=== PATIENT | female | born 1955 | race Caucasian/White ===

== ENCOUNTER 2017-06-06 10:42 | Emergency (ER) | payer OTHER ==
[2017-06-06] MEDS ORDERED: Morphine INJ* 4 MG/ML 1 ML CARPUJECT IV ONE ×3 (11:33→12:16)
[2017-06-06] MEDS ORDERED: Ondansetron INJ* 2 MG/ML VIAL IV ONE (11:44)
[2017-06-06] MEDS ORDERED: Morphine INJ* 4 MG/ML 1 ML SYRINGE (NEW SYRINGE VERSION) IV ONE (12:00)
--- NOTE | 2017-06-06 13:51 | RAD ---
HISTORY: Fall, left arm pain COMPARISONS: None VIEWS: 6, Frontal internal rotation, external rotation, outlet, and axillary views of the left shoulder frontal internal and external rotation views of the left humerus. FINDINGS: BONE DENSITY: There is diffuse osteopenia. BONES: There is a slightly angulated fracture of the surgical neck of the left humerus. There is minimal impaction. JOINTS: There is mild osteoarthritis of the AC joint. ALIGNMENT: There is no dislocation. SOFT TISSUES: Unremarkable. OTHER FINDINGS: None. IMPRESSION: 1. OSTEOPENIA. 2. MILDLY ANGULATED FRACTURE OF THE PROXIMAL LEFT HUMERUS
[2017-06-06] MEDS ORDERED: traMADol TAB* 50 MG PO ONE (14:34)
[2017-06-06 15:15] VITALS: BP 112/68
--- NOTE | 2017-06-08 11:09 | ED ---
Mich Trejo Stephanie, scribed for Be Vergara MD on 06/06/17 at 1151 . Upper Extremity Pain - HPI Summary HPI Summary: The pt is a 61 y/o F presenting to the ED with c/o L shoulder pain that began at 10:30 today s/p slip on ice. The pt reports hearing a pop after falling on L side. The pt denies numbness and tingling in the L UE, head trauma or LOC. Aggravating factors include movement. - History of Current Complaint Chief Complaint: Melissa Stated Complaint: POSSIBLE BROKEN LT SHOULDER Time Seen by Provider: 06/06/17 11:34 Hx Obtained From: Patient Mechanism Of Injury: Fall From A Standing Position Onset/Duration: Started Hours Ago - 2, Still Present Timing: Constant Severity Currently: Severe Pain Location: Shoulder - L Aggravating Factor(s): Movement Alleviating Factor(s): Nothing Associated Signs & Symptoms: Positive: Other - Negative: head trauma, LOC. Negative: Numbness/Tingling - L UE - Allergies/Home Medications Allergies/Adverse Reactions: Allergies Allergy/AdvReac Type Severity Reaction Status Date / Time MS Epinephrine [Epinephrine] Allergy HYPERVENTIL Verified 07/09/15 10:17 ATION MS Tetanus Antitoxin Allergy BRAIN Verified 07/09/15 10:17 [Tetanus Antitoxin] SEIZURES PMH/Surg Hx/FS Hx/Imm Hx Endocrine/Hematology History: Denies: Hx Diabetes Cardiovascular History: Denies: Hx Hypertension, Hx Pacemaker/ICD Respiratory History: Reports: Other Respiratory Problems/Disorders - BRONCHIAL PNEUMONIA X 2 History: Denies: Hx Renal Disease Musculoskeletal History: Reports: Hx Osteoporosis Sensory History: Reports: Hx Contacts or Glasses, Hx Vision Problem - r/t traumatic brain injury Denies: Hx Hearing Aid Opthamlomology History: Reports: Hx Contacts or Glasses, Hx Vision Problem - r/ t traumatic brain injury Neurological History: Reports: Hx Migraine, Hx Seizures, Other Neuro Impairments /Disorders - traumatic brain injury Psychiatric History: Denies: Hx Panic Disorder - Cancer History Cancer Type, Location and Year: Rt BREAST CANCER W/ MASTECTOMY - NO LYMPH NODES INVOLVED Hx Chemotherapy: Yes - APR-AUGUST 2014 CHEMO FOR RIGHT LYMPH CANCER Hx Radiation Therapy: No - Surgical History Surgery Procedure, Year, and Place: possibly 2009 or 2008 - right mastectomy. traumatic brain injury with surgery - HEMATOMA -BLEEDING - BUR HOLE DRAINAGE W/ TITANIUM CLOSURE - [facility] PL[facility] -11 years ago( INFORMAITON SCANNED INTO PACS). Rt HIP - FX REPAIR - 12/18/13. ECTOPIC - MANY YRS AGO Hx Anesthesia Reactions: Yes - with dental anesthesia Infectious Disease History: No Infectious Disease History: Denies: Traveled Outside the [place] in Last 30 Days - Family History Known Family History: Positive: Other - cancer, aneurism Negative: Diabetes - Social History Occupation: Works From/At Home Lives: With Family Alcohol Use: Weekly Alcohol Amount: half a bottle a week Substance Use Type: Reports: None Smoking Status (MU): Never Smoked Tobacco Review of Systems Negative: Fever, Chills Negative: Erythema Negative: Sore Throat Negative: Chest Pain Negative: Shortness Of Breath, Cough Negative: Abdominal Pain, Vomiting, Nausea Negative: dysuria, hematuria Positive: Other - L shoulder pain. Negative: Myalgia, Edema Negative: Rash Negative: Numbness Psychological: Other - Negative: dizziness All Other Systems Reviewed And Are Negative: Yes Physical Exam - Summary Physical Exam Summary: Constitutional: Well-developed, Well-nourished, Alert. (-) Distressed Skin: Warm, Dry HENT: Normocephalic; Atraumatic Eyes: Conjunctiva normal Neck: Musculoskeletal ROM normal neck. (-) JVD, (-) Stridor, (-) Tracheal deviation Cardio: Rhythm regular, rate normal, Heart sounds normal; Intact distal pulses; The pedal pulses are 2+ and symmetric. Radial pulses are 2+ and symmetric. (-) Murmur Pulmonary/Chest wall: Effort normal. (-) Respiratory distress, (-) Wheezes, (-) Rales Abd: Soft, (-) Tenderness, (-) Distension, (-) Guarding, (-) Rebound Musculoskeletal: Significant edema over L deltoid. No loss of deltoid prominence. Distal strength and sensation intact. Lymph: (-) Cervical adenopathy Neuro: Alert, Oriented x3 Psych: Mood and affect Normal Triage Information Reviewed: Yes Vital Signs On Initial Exam: Initial Vitals Temp Pulse Resp BP Pulse Ox 97.0 F 69 18 105/58 100 06/06/17 10:46 06/06/17 10:46 06/06/17 10:46 06/06/17 10:46 06/06/17 10:46 Vital Signs Reviewed: Yes Diagnostics - Vital Signs Vital Signs Temp Pulse Resp BP Pulse Ox 06/06/17 10:46 97.0 F 69 18 105/58 100 - Laboratory Lab Statement: Any lab studies that have been ordered have been reviewed, and results considered in the medical decision making process. - Radiology Shoulder XRay Xray Interpretation: Positive (See Comments) Radiology Interpretation Completed By: Radiologist - 1. OSTEOPENIA. 2. MILDLY ANGULATED FRACTURE OF THE PROXIMAL LEFT HUMERUS Humerus XRay Xray Interpretation: Positive (See Comments) - 1. OSTEOPENIA. 2. MILDLY ANGULATED FRACTURE OF THE PROXIMAL LEFT HUMERUS Radiology Interpretation Completed By: Radiologist Course/Dx - Course Course Of Treatment: The pt has a nondisplaced fracture. Urgent ortho referral for tomorrow. Splint in place. - Diagnoses Provider Diagnoses: possible humerus fracture Discharge - Discharge Plan Condition: Stable Disposition: HOME Prescriptions: traMADol TAB* [Ultram*] 50 mg PO Q6HR PRN #15 tab MDD 4 PRN Reason: Pain - Moderate To Severe Patient Education Materials: Proximal Humerus Fracture (ED) Referrals: Mic Sethi MD [Medical Doctor] - 06/07/17 Fly Phillips MD [Primary Care Provider] - Additional Instructions: Follow up with orthopedic physician tomorrow. RETURN TO THE EMERGENCY DEPARTMENT FOR CHANGING OR WORSENING SYMPTOMS The documentation as recorded by the Mich vázquez Stephanie accurately reflects the service I personally performed and the decisions made by , Be Vergara MD.
== END 2017-06-06 15:14 | disposition home or self-care (01) ==
LOC: ED 10:42
DX: S42.202A Unspecified fracture of upper end of left humerus, initial encounter for closed fracture (principal); W19.XXXA Unspecified fall, initial encounter; Y92.9 Unspecified place or not applicable; M85.822 Other specified disorders of bone density and structure, left upper arm; Z88.4 Allergy status to anesthetic agent; Z88.7 Allergy status to serum and vaccine
CPT/HCPCS: 96374; 96375; 96376; 99283; J2270; J2405

== ENCOUNTER 2017-06-16 14:00 | Inpatient (IN) | payer OTHER ==
[2017-10-06] MEDS ORDERED: LORazepam INJ* 2 MG/ML 1 ML VIAL IV PRN (17:13)
[2017-10-06] MEDS ORDERED: diPHENhydraMINE PO* 25 MG PO PRN (17:13)
[2017-10-06] MEDS ORDERED: Acetaminophen TAB* 325 MG PO PRN (17:13)
--- NOTE | 2017-10-06 17:40 | ADMNOTE ---
Admission Note HPI - HPI History of Present Illness: Deanne Pacheco is a 62 year old woman with a history of breast cancer and epilepsy since the age of 11. She reports that at the onset of her epilepsy, she had a seizure witnessed by her mother where she was staggering, walking around in a viejas and not responding. She was seizure-free during her teenage years on medication, but her seizures returned after a boyfriend committed suicide. She noticed increase seizure frequency during pregnancies, of which she 's had 6 with 2 healthy children. She gets an aura before a seizure that is a very "foreign" feeling descending over her and she has previously described this to me as a "big, bad meanie taking over my head". She can sometimes have repeated auras in a single day. Her has reported that when Deanne has a seizure, she is unresponsive, has bimanual automatisms, oral automatisms and humming. It takes her 2 to 4 minutes to get back to normal but she may still have a "fog" that takes longer to lift. Afterward, she feels confused. Thirteen years ago, she fell down the stairs for unclear reasons and had an intracranial hematoma which was evacuated on the right. Seizures went away for 1.5 years. When they returned, the semiology was the same. She had breast cancer in 2014 and seizures got worse during chemotherapy, up to twice per month. At that time, carbamazepine 200mg was increased to 6.5 tabs daily, which she divides over 4 administrations daily. She believes she had EEG monitoring at [facility] in the past, but could not specifically recall the results, though believes it was her choice not to go through with surgery. She continues to have multiple events per month. She had a seizure this morning , and on 10/03, she had two. I saw her on August 22 and at that time she reported having 5 seizures in addition to 5 auras in Apr, 1 sz in May, 4 sz in June plus 6 auras, 3 sz in July plus 1 aura. She had agreed previously that she would like to re-explore a surgical option, given her medically refractory seizures. PRIOR AEDs: Lamictal: not effective levetiracetam: sleepiness phenobarbital: on through teenage years phenytoin: on through teen years Epilepsy Risk Factors: Normal and developmental history. Mother had a "nervous breakdown" during and took some medications but pt unsure what. No h/o head injury prior to onset of seizures at age 11. No learning disabilities, no h/o febrile seizures. PNEA Risk Factors: h/o seizures reappearing after traumatic event (boyfriend committed suicide) PMH/Surg Hx/FS Hx/Imm Hx Endocrine/Hematology History: Denies: Hx Diabetes Cardiovascular History: Denies: Hx Hypertension, Hx Pacemaker/ICD Respiratory History: Reports: Other Respiratory Problems/Disorders - BRONCHIAL PNEUMONIA X 2 History: Denies: Hx Renal Disease Musculoskeletal History: Reports: Hx Osteoporosis Sensory History: Reports: Hx Contacts or Glasses, Hx Vision Problem - r/t traumatic brain injury Denies: Hx Hearing Aid, Hx Hearing Problem Opthamlomology History: Reports: Hx Contacts or Glasses, Hx Vision Problem - r/ t traumatic brain injury Neurological History: Reports: Hx Migraine, Hx Seizures, Other Neuro Impairments /Disorders - traumatic brain injury Denies: Hx Developmental Delay, Hx Transient Ischemic Attacks (TIA) Psychiatric History: Reports: Hx Depression Denies: Hx Panic Disorder - Cancer History Cancer Type, Location and Year: Rt BREAST CANCER W/ MASTECTOMY - NO LYMPH NODES INVOLVED Date and Location of Last Treatment: chemotherapy august 2014 Hx Chemotherapy: Yes - APR-AUGUST 2014 CHEMO FOR RIGHT breast CANCER Hx Radiation Therapy: No Hx Palliative Cancer Treatment: No - Surgical History Surgery Procedure, Year, and Place: possibly 2009 or 2008 - right mastectomy, left lumpectoomy, lymph node removal. traumatic brain injury with surgery - HEMATOMA -BLEEDING - BUR HOLE DRAINAGE W/ TITANIUM CLOSURE - [facility] PL[facility] -11 years ago( INFORMAITON SCANNED INTO PACS). Rt HIP - FX REPAIR - 12/18/13. ECTOPIC - MANY YRS AGO Hx Anesthesia Reactions: Yes - with dental anesthesia Infectious Disease History: No Infectious Disease History: Denies: Traveled Outside the [place] in Last 30 Days - Family History Known Family History: Positive: Other - cancer, aneurysm Negative: Diabetes - Social History Alcohol Use: Occasionally Alcohol Amount: wine occasionally Substance Use Type: Reports: None Smoking Status (MU): Never Smoked Tobacco EMU Exam - Exam Physical/Neurological Exam: Physical Exam: General: Well appearing in no acute distress. Eyes: normal conjunctiva, pupils were equal and reactive. Neck: supple ENT: atraumatic, normal oropharynx MSK: no extremity deformities Derm: no rashes or lesions Neurological Exam: Mental Status: Awake and alert. Oriented to person, place, and time. Fluent. Comprehension intact. Affect appropriate. Cranial Nerves: Visual song full to confrontation. Versions were full and without nystagmus. Facial musculature and sensation were symmetric. Hearing grossly intact to finger rub. Palate was upgoing bilaterally. Tongue was midline. Shoulder shrug was symmetric. Motor: Bulk, tone, and strength were normal throughout. Pronator drift was absent. There were no abnormal movements. Sensory: Sensation to light touch intact. Romberg was deferred. Coordination: Finger to nose intact. Reflexes: 2+ throughout the upper and lower extremities. Gait: Narrow based and normal. EMU Review of Systems Review of Systems: A 12 point review of systems was completed and significantly positive for: nothing. The remainder of the review was negative except as stated above in the HPI. EMU Diagnostics - Diagnostic Most Recent Vital Signs: Vital Signs: Temp Pulse Resp BP Pulse Ox 97.9 F 70 16 121/73 100 10/06/17 14:20 10/06/17 14:20 10/06/17 14:20 10/06/17 14:20 10/06/17 14:20 Lab Results: 02/13/17: free carbamazepine: 2.5, total 7.3, 10,11-epoxide 1.9 Interim video-EEG long-term monitoring report: 24 hour EEG 02/16/17: abnormal due to presence of polymorphic slowing in R parietal region, which occurred in the context of higher amplitudes and faster frequency activity, the latter of which is consistent with breach effect related to her craniotomy. Slowing indicative of underlying neuronal dysfunction in this region. No discharges. One event of vision changes with poor balance and "brain strain" noted which was not epileptic Radiology Impressions: MRI brain w and w/o 07/18/15: focal volume loss inferious left frontal lobe and inferior anterior left temporal lobe with increased signal intensity c/w areas of encephalomalacia related to prior TBI. 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 EMU Assessment/Plan - Assessment/Plan Assessment/Plan: 62 year old woman with h/o breast cancer and long-standing, medically refractory focal epilepsy presenting for surgical evaluation. Her events are consistent with focal seizures with impaired awareness. Her MRI scan is notable for areas of abnormality in the left frontal and temporal lobes, as well as previous hemorrhage in the right parietal region. She is currently treated with carbamazepine 400mg/300mg/200mg/400mg daily and has failed other antiseizure medications, as detailed above. She may have had a previous surgical work up in [place], but does not recall the outcome and/or elected not to proceed with surgery. The goal of the present jail video/EEG monitoring session is to localize her seizures and evaluate her for surgical candidacy. Plan: Admit to the Epilepsy Service, Dr. Cagle attending residential video EEG monitoring for the purpose of characterizing and localizing events above Seizure precautions IV lorazepam as needed for GTC Home AED regimen: carbamazepine 400mg/300mg/200mg/400mg (TDD 1300mg). Continue on other prescribed home medications except for supplements which were not brought in bottles, unless her can get the bottles for us * Decrease carbamazepine 200/150/100/200mg tonight
[2017-10-06] MEDS ORDERED: Magnesium Oxide TAB* 400 MG PO SCH (18:00)
[2017-10-06] MEDS ORDERED: carBAMazepine TAB(*) 200 MG PO SCH ×2 (18:00→21:00)
[2017-10-06] MEDS: Cholecalciferol TAB* 1000 UNITS PO SCH (22:00)
[2017-10-07] MEDS ORDERED: carBAMazepine TAB(*) 200 MG PO SCH ×2 (09:00→12:00)
[2017-10-07] MEDS: Ascorbic Acid TAB* 500 MG PO SCH (09:10)
[2017-10-07] MEDS: Calcium Carbonate TAB* 1250 MG (CALCIUM 500 MG) PO SCH (09:11)
[2017-10-07] MEDS: Vitamin THERAPEUTIC TAB PO SCH (09:11)
[2017-10-07] MEDS: Cholecalciferol TAB* 1000 UNITS PO SCH ×2 (09:12→21:13)
[2017-10-07] MEDS: Vitamin E CAP* 400 UNIT PO SCH (09:12)
--- NOTE | 2017-10-07 10:17 | PN ---
Epilepsy Service Progress Note Date of Service: 10/07/17 - Subjective No overnight events. Patient asks if she can do her usual exercise routine at night which involved mostly stretching while lying down on the ground, but she also does 400 jumping jacks. She is feeling a little achy in her shoulders from not moving around much yesterday. She did not take her usual afternoon nap yesterday because of arriving here at 1pm. - Medications Active Medications: Acetaminophen (Tylenol Tab*) 650 mg PO Q6H PRN PRN Reason: PAIN Ascorbic Acid (Vitamin C Tab*) 500 mg PO DAILY [facility] Last Admin: 10/07/17 09:10 Dose: 500 mg Calcium Carbonate (Calcium Carbonate Tab*) 1,250 mg PO DAILY [facility] Last Admin: 10/07/17 09:11 Dose: 1,250 mg Carbamazepine (Tegretol Tab(*)) 100 mg PO QPM [facility] Last Admin: 10/06/17 18:45 Dose: 100 mg Carbamazepine (Tegretol Tab(*)) 200 mg PO BEDTIME [facility] Last Admin: 10/06/17 22:01 Dose: 200 mg Carbamazepine (Tegretol Tab(*)) 150 mg PO 1200 [facility] Carbamazepine (Tegretol Tab(*)) 200 mg PO QAM [facility] Last Admin: 10/07/17 09:10 Dose: 200 mg Cholecalciferol (Vitamin D Tab*) 4,000 units PO BID [facility] Last Admin: 10/07/17 09:12 Dose: 4,000 units Diphenhydramine HCl (Benadryl Po*) 25 mg PO Q6H PRN PRN Reason: ITCHING Lorazepam (Ativan Inj*) 1 mg IV Q8H PRN PRN Reason: Generalized Tonic Clonic Seizu Magnesium Oxide (Magox 400 Tab*) 500 mg PO QPM [facility] Multivitamins (Theragran Tab*) 1 tab PO DAILY [facility] Last Admin: 10/07/17 09:11 Dose: 1 tab Vitamin E (Vitamin E Cap*) 400 unit PO DAILY [facility] Last Admin: 10/07/17 09:12 Dose: 400 unit EMU Diagnostics - Diagnostic Most Recent Vital Signs: Vital Signs: Temp Pulse Resp BP Pulse Ox 98.0 F 59 17 137/70 100 10/07/17 07:39 10/07/17 07:39 10/07/17 07:39 10/07/17 07:39 10/07/17 07:39 Interim video-EEG long-term monitoring report: #01 10/06: Medications: carbamazepine 100mg dinner time on 10/06, 200mg at bedtime 10/06, 200mg AM 10/07 The background demonstrated an area of slowing, higher amplitudes and some faster frequency activity in the right parietal region, maximal at P4, which is consistent with breach effect related to her previous craniotomy. There is also intermittent sharply contoured delta slowing in the left temporal region, maximal at T1 and F7 with a field to T3. At times, these appear to be poorly formed sharp wave discharges. The background was otherwise notable for a PDR of 9 on the left, approximately 8.5 on the right. The sleep background was notable for rapid transition to REM sleep after the patient initially fell asleep. Approximately 20 minutes after stage 2 sleep was first noted she went into REM, but she had frequent arousals initially during those first 20 minutes of sleep. No seizures, no ictal patterns EMU Exam - Exam Physical/Neurological Exam: Physical Exam: General: Well appearing in no acute distress. Eyes: normal conjunctiva, pupils were equal and reactive. Neck: supple ENT: atraumatic, normal oropharynx MSK: no extremity deformities Derm: no rashes or lesions Neurological Exam: Mental Status: Awake and alert. Oriented to person, place, and time. Fluent. Comprehension intact. Affect appropriate. Cranial Nerves: Visual song full to confrontation. Pupils 3/3 to 2/2mm bilaterally. Versions were full and without nystagmus. Facial musculature and sensation were symmetric. Hearing grossly intact to voice. Palate was upgoing bilaterally. Tongue was midline. Shoulder shrug was symmetric. Motor: Bulk, tone, and strength were normal throughout. Pronator drift was absent. There were no abnormal movements. Sensory: Sensation to light touch intact. Romberg was deferred. Coordination: Finger to nose intact. Reflexes: 2+ throughout the upper and lower extremities. 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 The current monitoring session is undertaken in order to evaluate for surgical candidacy. EEG has been notable for intermittent slowing in the left temporal region and right parietal region. No typical events recorded yet. Plan: * Continue nursing home video EEG monitoring to capture typical episodes * Seizure precautions * lorazepam 1mg IV for GTC * home AED regiment: carbamazepine 400mg/300mg/200mg/400mg. * Wean carbamazepine as follows: d/c 1800 dose (received 100mg last night), reduce bedtime dose to 100mg. Will receive 150mg at noon today, then 100mg tomorrow AM, then will d/c carbamazepine. * continue other home meds, except supplements which were not in bottles/ original containers * Ok for patient to exercise as she does at home with staff present in the room. Also offered use of exercise bike.
--- NOTE | 2017-10-07 10:28 | EEG ---
RESIDENTIAL VIDEO/EEG MONITORING - Monitoring Monitoring Start Date: 10/06/17 Current Monitoring Session: 10/06/17 - 10/10/17 EEG Clinical Indication: This is a 62 year old woman with h/o breast cancer and long-standing, medically refractory focal epilepsy presenting for surgical evaluation. Her events are consistent with focal seizures with impaired awareness and are described as staring/unresponsiveness associated with bimanual and oral automatisms. She sometimes has an aura of a foreign feeling descending over her. Her MRI scan is notable for areas of abnormality in the left frontal and temporal lobes, as well as previous hemorrhage in the right parietal region. She is currently treated with carbamazepine 400mg/300mg/200mg/400mg daily and has failed other antiseizure medications. The goal of the present rodent exterminator video/EEG monitoring session is to localize her seizures and evaluate her for surgical candidacy. Introduction: INTRODUCTION: The EEG was monitored from 21 scalp electrodes. Nineteen electrodes consisted of the standard parasagittal, temporal and midline leads of the International 10 -20 system. In addition, special electrodes T1 and T2 were placed. EEG data were recorded on an [employer] system with simultaneous MPEG-4 digital video recording of patient behavior. EEG recording was in a monopolar montage with all electrodes referenced to FCz. Significant behavioral events were signaled by an event button, or putative electrical seizure events were detected by a computer program. All EEG data were reviewed in their entirety on a monitor with reconstruction of montages and adjustments of sensitivity and filtering. Simultaneous patient behavior was viewed on an adjacent monitor and correlated with the EEG. - Medications Active Medications: Acetaminophen (Tylenol Tab*) 650 mg PO Q6H PRN PRN Reason: PAIN Ascorbic Acid (Vitamin C Tab*) 500 mg PO DAILY [facility] Last Admin: 10/07/17 09:10 Dose: 500 mg Calcium Carbonate (Calcium Carbonate Tab*) 1,250 mg PO DAILY [facility] Last Admin: 10/07/17 09:11 Dose: 1,250 mg Carbamazepine (Tegretol Tab(*)) 100 mg PO QPM [facility] Last Admin: 10/06/17 18:45 Dose: 100 mg Carbamazepine (Tegretol Tab(*)) 200 mg PO BEDTIME [facility] Last Admin: 10/06/17 22:01 Dose: 200 mg Carbamazepine (Tegretol Tab(*)) 150 mg PO 1200 [facility] Carbamazepine (Tegretol Tab(*)) 200 mg PO QAM [facility] Last Admin: 10/07/17 09:10 Dose: 200 mg Cholecalciferol (Vitamin D Tab*) 4,000 units PO BID [facility] Last Admin: 10/07/17 09:12 Dose: 4,000 units Diphenhydramine HCl (Benadryl Po*) 25 mg PO Q6H PRN PRN Reason: ITCHING Lorazepam (Ativan Inj*) 1 mg IV Q8H PRN PRN Reason: Generalized Tonic Clonic Seizu Magnesium Oxide (Magox 400 Tab*) 500 mg PO QPM [facility] Multivitamins (Theragran Tab*) 1 tab PO DAILY [facility] Last Admin: 10/07/17 09:11 Dose: 1 tab Vitamin E (Vitamin E Cap*) 400 unit PO DAILY [facility] Last Admin: 10/07/17 09:12 Dose: 400 unit - Description Background: The most notable feature of the interictal EEG was the presence of multifocal areas of slowing. There were higher amplitudes and some faster frequency activity in the right parietal region, maximal at P4, which is consistent with breach effect related to her previous craniotomy. There is also intermittent sharply contoured delta slowing in the left temporal region, maximal at T1 and F7 with a field to T3. At times, this slowing appears to be poorly formed sharp wave discharges. The waking background otherwise showed appropriate organization with clearly defined anterior-posterior voltage and frequency gradients. There was a defined posterior dominant rhythm of 9 Hertz on the left, typically 0.5Hz slower on the right, which showed normal reactivity. Anteriorly, there was the expected pattern of lower voltage and more irregular theta and beta rhythms. The sleep background was appropriately organized with well-developed spindles and vertex waves indicative of stage 2 sleep. These sleep transients showed appropriate morphology and were bilaterally synchronous and symmetrical. Development of diffuse delta range frequencies with dropout of stage 2 architecture accompanied transition to slow wave sleep, and a lower voltage mixed frequency pattern associated with eye movements was consistent with REM sleep. On the initial night of recording, she transitioned into REM sleep within 20 minutes of falling asleep, but this was not noted on subsequent nights. Intericatal Epileptiform Activity: #01 10/06: Medications: carbamazepine 100mg dinner time on 10/06, 200mg at bedtime 10/06, 200mg AM 10/07 The background demonstrated an area of slowing, higher amplitudes and some faster frequency activity in the right parietal region, maximal at P4, which is consistent with breach effect related to her previous craniotomy. There is also intermittent sharply contoured delta slowing in the left temporal region, maximal at T1 and F7 with a field to T3. At times, these appear to be poorly formed sharp wave discharges. The background was otherwise notable for a PDR of 9 on the left, approximately 8.5 on the right. The sleep background was notable for rapid transition to REM sleep after the patient initially fell asleep. Approximately 20 minutes after stage 2 sleep was first noted she went into REM, but she had frequent arousals initially during those first 20 minutes of sleep. #02 10/07: Medications: carbamazepine 150mg noon 10/07, 100mg at bedtime, 100mg AM on 10/08 [place] is similar to that described above, with area of breach with intermixed slowing in the right parietal region and independent area of sharply contoured delta slowing versus poorly formed sharp wave discharges in the left temporal region. This delta slowing is noted most during waking and drowsiness, less during sleep. The sleep background appeared normal, with normal REM latency. #03 10/08: Medications: none after AM dose carbamazepine above Background remained similar to that described above with breach effect over right parietal region with intermittent slowing as well as TIRDA in the left temporal region. #04 10/09: Medications: carbamazepine 400mg QAM and bedtime, 300mg at 1300 and 200mg at dinnertime. Depakote ER 250mg at bedtime Background remained similar to that previously described with breach effect over right parietal region with associated intermittent slowing as well as TIRDA in the left temporal region. TIRDA typically occurred at ~1Hz and was maximal at T1 and F7. Normal sleep background. REM was first noted about 40 minutes after she feel asleep, but sleep had been very fragmented prior to that. Ictal Activity: #01 10/06: No seizures, no ictal patterns, no typical events #02 10/07: She had one seizure at 13:55 on 10/07 which was unrecognized. Electrographically, this began with an attenuation over the left hemisphere primarily, followed by a rhythmic 4 Hz pattern which did not emerge until about 40 seconds after the attenuation and was maximal over the temporal region and parieto-occipital region. This then increased in frequency to a 6 Hz spiking pattern, maximal at T1, F7, T3 and T5, and after 25 seconds, was replaced by rhythmic 3 Hz activity with spread into the right hemisphere. The seizure ended after 1 minute and 20 seconds, and the left temporal region was relatively suppressed, with gradual return of the usual background over a few minutes. Clinically, she was laying in bed with her eyes closed when the seizure began. Thirty seconds after the initial voltage attenuation was noted, her eyes opened and she had prominent oral automatisms, followed by repeatedly moving her left leg against the bed by flexing and extending at the knee. Her head then turned toward the left and she reached over with her left hand, touched her right shoulder and exhibited manual automatism with the left hand. The right arm remained under a blanket until after the seizure was over. There were also humming vocalizations. After the seizure was over, she reached her right arm up and grabbed her pillow, then was seen to massage the pillow in the post-ictal state. She looked around confused, but did not recognize she'd had a seizure. #03 10/08: Medications: none after AM dose carbamazepine above Background remained similar to that described above with breach effect over right parietal region with intermittent slowing as well as TIRDA in the left temporal region. A seizure occurred at 23:25 on 10/08. Electographically, there was voltage attenuation diffusely, but primarily over the left hemisphere/temporal region followed 20 seconds later by prominent muscle artifact partially obscuring the background as she began having oral automatisms. 5 to 10 seconds later, a 6 Hz rhythm was observed in the left posterior region, still with the temporal region obscured by muscle. The background was then further obscured by muscle, but a 7 Hz rhythm could be observed in both posterior head regions. After another 30 to 40 seconds, the background was better observed and there was diffuse, but left hemispheric predominant, 6 to 7 Hz polyspike activity noted in the left temporal and central regions primarily, with some rhythmic, slower frequencies noted more anteriorly. This slowed to rhythmic 3 to 4 Hz activity with intermixed polyspikes and the patient event button was activated by nursing after just over a minute after the initial clinical manifestations of the seizure. The ictal activity slowed further to 2-3 Hz and was prominently expressed in the left>right frontocentral regions. After another 50 seconds, muscle activity again obscured the background as the seizure secondarily generalized. Bilateral spread was characterized by buildup of lower voltage, polyspike activity centrally, followed by bursts of polyspike activity and aftergoing slow waves as the seizure terminated. At the termination of the seizure, the left hemisphere was noted to be suppressed 1 second before the activity terminated in the right hemisphere. The seizure lasted 4 minutes. Clinically, she was laying in bed with eyes closed at the beginning of the seizure. She exhaled deeply a few times when the EEG was noted to show diffuse voltage attenuation. She then developed prominent oral automatisms with her mouth open wide, appeared restless and her left hand crossed over her body and grabbed/massaged her right shoulder. The left leg repeatedly flexed and extended at the hip and knee, rubbing against the bed. There were intermittent moaning vocalizations and her head turned toward the left, then returned to the midline as the semiology changed to more agitated behaviors with her sitting up , both legs up off the bed with kicking movements, grabbing at her knees with both hands. After this, both legs repeatedly flexed and extended at the hip and knee with large amplitude movements. She then sat up and tried to get out of bed and nursing was able to keep her in bed. She exhibited some clonic twitching of the head to the right and began gazing toward the right. She was unresponsive to the nurse. As the seizure generalized, her head turned more toward the right and there was a right facial grimace with forced eye closure and left facial clonic activity. She then leaned back and exhibited rapid clonus with the left leg flexed at the hip and knee, right leg extended and her left hand was gripping the nurse's arm. The left arm raised up near her face and the right arm was extended at her side. The left arm came through a figure-4 -like posture and extended as well. At this point, clonus was more prominent in the right arm while the left was more tonic, and activity was asynchronous. She was rolled on to her side and had sonorous respirations after the seizure. #04 10/09: No seizures, no patient events - Impression Impression: This is an abnormal long-term monitoring session. The ictal EEG is notable for 2 seizures both of which began with a voltage attenuation primarily over the left hemisphere, then rhythmic delta or theta activity which was diffusely represented in the left hemipshere, but maximal in the temporal region and/or parieto-occipital region. Clinically, she exhibited oral automatisms, repeated flexion/extension of the left leg, and manual automatism with the left hand. The second seizure secondarily generalized. The interictal EEG is notable for slowing and breach rhythm over the right parietal region, consistent with her previous hemorrhage and craniotomy, as well as delta slowing over the left temporal region which is sometimes consistent with temporal intermittent rhythmic delta activity (TIRDA). 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
[2017-10-07] MEDS ORDERED: carBAMazepine CHEW TAB(*) 100 MG PO SCH ×2 (12:15→21:00)
[2017-10-07] MEDS ORDERED: Magnesium Oxide TAB* 400 MG PO SCH ×2 (18:00→18:01)
[2017-10-07] MEDS: Magnesium Oxide TAB* 400 MG PO SCH (18:08)
[2017-10-08] MEDS ORDERED: carBAMazepine CHEW TAB(*) 100 MG PO SCH (09:00)
[2017-10-08] MEDS: Ascorbic Acid TAB* 500 MG PO SCH (09:10)
[2017-10-08] MEDS: Calcium Carbonate TAB* 1250 MG (CALCIUM 500 MG) PO SCH (09:11)
[2017-10-08] MEDS: Vitamin E CAP* 400 UNIT PO SCH (09:13)
[2017-10-08] MEDS: Cholecalciferol TAB* 1000 UNITS PO SCH ×2 (09:13→22:04)
[2017-10-08] MEDS: Vitamin THERAPEUTIC TAB PO SCH (09:14)
--- NOTE | 2017-10-08 10:27 | PN ---
Epilepsy Service Progress Note Date of Service: 10/08/17 - Subjective Patient had one seizure just before 2pm yesterday. She did not recognize it before or after, and does not recall this today. She was laying down to take a nap at the time. No further events. She discussed that previously in [place], she'd been told the seizures were from the left temporal lobe but that she would have to "relearn how to talk" after a surgery, so she opted not to do it. She does not recall having any specific language or memory testing at that time. She had her last dose of carbamazepine this morning. Of note, her BP was elevated last evening, nursing called to notify me and it was decided not to do anything, just watch. BP is back down in the normal range this AM. She also noticed a small, red lesion on her arm (? insect bite) which she brought to nurse's attention and said that because of her lymph node dissection related to her breast cancer surgery, the surgeon told her that even the smallest cut should make her seek medical attention and potentially antibiotic therapy because she would not be able to fight infection well after this surgery. - Medications Active Medications: Acetaminophen (Tylenol Tab*) 650 mg PO Q6H PRN PRN Reason: PAIN Ascorbic Acid (Vitamin C Tab*) 500 mg PO DAILY [facility] Last Admin: 10/08/17 09:10 Dose: 500 mg Calcium Carbonate (Calcium Carbonate Tab*) 1,250 mg PO DAILY [facility] Last Admin: 10/08/17 09:11 Dose: 1,250 mg Cholecalciferol (Vitamin D Tab*) 4,000 units PO BID [facility] Last Admin: 10/08/17 09:13 Dose: 4,000 units Diphenhydramine HCl (Benadryl Po*) 25 mg PO Q6H PRN PRN Reason: ITCHING Lorazepam (Ativan Inj*) 1 mg IV Q8H PRN PRN Reason: Generalized Tonic Clonic Seizu Magnesium Oxide (Magox 400 Tab*) 800 mg PO 1800 [facility] Last Admin: 10/07/17 18:08 Dose: 800 mg Multivitamins (Theragran Tab*) 1 tab PO DAILY [facility] Last Admin: 10/08/17 09:14 Dose: 1 tab Vitamin E (Vitamin E Cap*) 400 unit PO DAILY [facility] Last Admin: 10/08/17 09:13 Dose: 400 unit EMU Diagnostics - Diagnostic Most Recent Vital Signs: Vital Signs: Temp Pulse Resp BP Pulse Ox 97.9 F 68 18 104/62 99 10/08/17 08:04 10/08/17 08:04 10/08/17 08:33 10/08/17 08:04 10/07/17 21:18 Interim video-EEG long-term monitoring report: #01 10/06: Medications: carbamazepine 100mg dinner time on 10/06, 200mg at bedtime 10/06, 200mg AM 10/07 The background demonstrated an area of slowing, higher amplitudes and some faster frequency activity in the right parietal region, maximal at P4, which is consistent with breach effect related to her previous craniotomy. There is also intermittent sharply contoured delta slowing in the left temporal region, maximal at T1 and F7 with a field to T3. At times, these appear to be poorly formed sharp wave discharges. The background was otherwise notable for a PDR of 9 on the left, approximately 8.5 on the right. The sleep background was notable for rapid transition to REM sleep after the patient initially fell asleep. Approximately 20 minutes after stage 2 sleep was first noted she went into REM, but she had frequent arousals initially during those first 20 minutes of sleep. No seizures, no ictal patterns #02 10/07: Medications: carbamazepine 150mg noon 10/07, 100mg at bedtime, 100mg AM on 10/08 [place] is similar to that described above, with area of breach with intermixed slowing in the right parietal region and independent area of sharply contoured delta slowing versus poorly formed sharp wave discharges in the left temporal region. This delta slowing is noted most during waking and drowsiness, less during sleep. The sleep background appeared normal, with normal REM latency. She had one seizure at 13:55 on 10/07 which was unrecognized. Electrographically , this began with an attenuation over the left hemisphere primarily, followed by a rhythmic 4 Hz pattern which did not emerge until about 40 seconds after the attenuation and was maximal over the temporal region and parieto-occipital region. This then increased in frequency to a 6 Hz spiking pattern, maximal at T1, F7, T3 and T5, and after 25 seconds, was replaced by rhythmic 3 Hz activity with spread into the right hemisphere. The seizure ended after 1 minute and 20 seconds, and the left temporal region was relatively suppressed, with gradual return of the usual background over a few minutes. Clinically, she was laying in bed with her eyes closed when the seizure began. Thirty seconds after the initial voltage attenuation was noted, her eyes opened and she had prominent oral automatisms, followed by repeatedly moving her left leg against the bed by flexing and extending at the knee. Her head then turned toward the left and she reached over with her left hand, touched her right shoulder and exhibited manual automatism with the left hand. The right arm remained under a blanket until after the seizure was over. There were also humming vocalizations. After the seizure was over, she reached her right arm up and grabbed her pillow, then was seen to massage the pillow in the post-ictal state. She looked around confused, but did not recognize she'd had a seizure. EMU Exam - Exam Physical/Neurological Exam: Physical Exam: General: Well appearing in no acute distress. Eyes: normal conjunctiva, pupils were equal and reactive. Neck: supple ENT: atraumatic, normal oropharynx MSK: no extremity deformities Derm: There is a scratch with scab on the right dorsal forearm as well as a small, slightly raised and erythematous area on the dorsal right forearm, overlying a prominent vein. This is slightly tender to touch. No drainage. Neurological Exam: Mental Status: Awake and alert. Oriented to person, place, and time. Fluent. Comprehension intact. Affect appropriate. Cranial Nerves: Visual song full to confrontation. Pupils 3/3 to 2/2mm bilaterally. Versions were full and without nystagmus. Facial musculature and sensation were symmetric. Hearing grossly intact to voice. Palate was upgoing bilaterally. Tongue was midline. Shoulder shrug was symmetric. Motor: Bulk, tone, and strength were normal throughout. Pronator drift was absent. There were no abnormal movements. Sensory: Sensation to light touch intact. Romberg was deferred. Coordination: Finger to nose intact. Reflexes: 2+ throughout the upper and lower extremities. 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 The current monitoring session is undertaken in order to evaluate for surgical candidacy. EEG has been notable for intermittent slowing in the left temporal region and right parietal region. She's had one typical seizure thus far characterized by left hand manual automatism, oral automatism, humming, repeated left leg flexion/extension at the knee and head turning toward the left. This was associated with electrographic seizure activity in the left tempora/parietal regions. We will continue to monitor to confirm lateralization/localization of events. She also has a small, raised and slightly erythematous area on her right forearm which looks like an insect bite which we will continue to monitor Plan: * Continue long-term video EEG monitoring to capture typical episodes * Seizure precautions * lorazepam 1mg IV for GTC * home AED regiment: carbamazepine 400mg/300mg/200mg/400mg. * Last dose of carbamazepine received this AM. * continue other home meds, except supplements which were not in bottles/ original containers * Ok for patient to exercise as she does at home with staff present in the room. Also offered use of exercise bike. * Will monitor red area on right forearm and consider topical abx if appearing infected.
[2017-10-08] MEDS: Magnesium Oxide TAB* 400 MG PO SCH (18:00)
[2017-10-09] MEDS: Ascorbic Acid TAB* 500 MG PO SCH (09:21)
[2017-10-09] MEDS: Cholecalciferol TAB* 1000 UNITS PO SCH ×2 (09:22→21:19)
[2017-10-09] MEDS: Vitamin E CAP* 400 UNIT PO SCH (09:23)
[2017-10-09] MEDS: Vitamin THERAPEUTIC TAB PO SCH (09:24)
[2017-10-09] MEDS: Calcium Carbonate TAB* 1250 MG (CALCIUM 500 MG) PO SCH (09:24)
[2017-10-09] MEDS: carBAMazepine TAB(*) 200 MG PO SCH ×2 (10:07→21:19)
--- NOTE | 2017-10-09 11:21 | PN ---
Epilepsy Service Progress Note Date of Service: 10/09/17 - Subjective Patient had a seizure last night which secondarily generalized, around 11:30pm. Nursing noted, pressed the event button. I instructed for lorazepam to be given as per prn order. She did not experience further seizures overnight. Home dose carbamazepine being restarted this morning. Spent 45 minutes discussing results of monitoring thus far, plan going forward, possibility of adding a second antiseizure medication - Medications Active Medications: Acetaminophen (Tylenol Tab*) 650 mg PO Q6H PRN PRN Reason: PAIN Ascorbic Acid (Vitamin C Tab*) 500 mg PO DAILY [facility] Last Admin: 10/09/17 09:21 Dose: 500 mg Calcium Carbonate (Calcium Carbonate Tab*) 1,250 mg PO DAILY [facility] Last Admin: 10/09/17 09:24 Dose: 1,250 mg Carbamazepine (Tegretol Tab(*)) 400 mg PO BID [facility] Last Admin: 10/09/17 10:07 Dose: 400 mg Carbamazepine (Tegretol Tab(*)) 300 mg PO 1300 [facility] Carbamazepine (Tegretol Tab(*)) 200 mg PO QPM [facility] Cholecalciferol (Vitamin D Tab*) 4,000 units PO BID [facility] Last Admin: 10/09/17 09:22 Dose: 4,000 units Diphenhydramine HCl (Benadryl Po*) 25 mg PO Q6H PRN PRN Reason: ITCHING Lorazepam (Ativan Inj*) 1 mg IV Q8H PRN PRN Reason: Generalized Tonic Clonic Seizu Last Admin: 10/09/17 00:20 Dose: 1 mg Magnesium Oxide (Magox 400 Tab*) 800 mg PO 1800 [facility] Last Admin: 10/08/17 18:00 Dose: 800 mg Multivitamins (Theragran Tab*) 1 tab PO DAILY [facility] Last Admin: 10/09/17 09:24 Dose: 1 tab Vitamin E (Vitamin E Cap*) 400 unit PO DAILY [facility] Last Admin: 10/09/17 09:23 Dose: 400 unit EMU Diagnostics - Diagnostic Most Recent Vital Signs: Vital Signs: Temp Pulse Resp BP Pulse Ox 98.8 F 73 17 132/70 100 10/09/17 07:55 10/09/17 07:55 10/09/17 08:00 10/09/17 07:55 10/09/17 07:55 Interim video-EEG long-term monitoring report: #01 10/06: Medications: carbamazepine 100mg dinner time on 10/06, 200mg at bedtime 10/06, 200mg AM 10/07 The background demonstrated an area of slowing, higher amplitudes and some faster frequency activity in the right parietal region, maximal at P4, which is consistent with breach effect related to her previous craniotomy. There is also intermittent sharply contoured delta slowing in the left temporal region, maximal at T1 and F7 with a field to T3. At times, these appear to be poorly formed sharp wave discharges. The background was otherwise notable for a PDR of 9 on the left, approximately 8.5 on the right. The sleep background was notable for rapid transition to REM sleep after the patient initially fell asleep. Approximately 20 minutes after stage 2 sleep was first noted she went into REM, but she had frequent arousals initially during those first 20 minutes of sleep. No seizures, no ictal patterns #02 10/07: Medications: carbamazepine 150mg noon 10/07, 100mg at bedtime, 100mg AM on 10/08 [place] is similar to that described above, with area of breach with intermixed slowing in the right parietal region and independent area of sharply contoured delta slowing versus poorly formed sharp wave discharges in the left temporal region. This delta slowing is noted most during waking and drowsiness, less during sleep. The sleep background appeared normal, with normal REM latency. She had one seizure at 13:55 on 10/07 which was unrecognized. Electrographically , this began with an attenuation over the left hemisphere primarily, followed by a rhythmic 4 Hz pattern which did not emerge until about 40 seconds after the attenuation and was maximal over the temporal region and parieto-occipital region. This then increased in frequency to a 6 Hz spiking pattern, maximal at T1, F7, T3 and T5, and after 25 seconds, was replaced by rhythmic 3 Hz activity with spread into the right hemisphere. The seizure ended after 1 minute and 20 seconds, and the left temporal region was relatively suppressed, with gradual return of the usual background over a few minutes. Clinically, she was laying in bed with her eyes closed when the seizure began. Thirty seconds after the initial voltage attenuation was noted, her eyes opened and she had prominent oral automatisms, followed by repeatedly moving her left leg against the bed by flexing and extending at the knee. Her head then turned toward the left and she reached over with her left hand, touched her right shoulder and exhibited manual automatism with the left hand. The right arm remained under a blanket until after the seizure was over. There were also humming vocalizations. After the seizure was over, she reached her right arm up and grabbed her pillow, then was seen to massage the pillow in the post-ictal state. She looked around confused, but did not recognize she'd had a seizure. #03 10/08: Medications: none after AM dose carbamazepine above Background remained similar to that described above with breach effect over right parietal region with intermittent slowing as well as TIRDA in the left temporal region. A seizure occurred at 23:25 on 10/08. Electographically, there was voltage attenuation diffusely, but primarily oer the left hemisphere/temporal region followed 20 seconds later by prominent muscle artifact partially obscuring the background as she began having oral automatisms. 5 to 10 seconds later, a 6 Hz rhythm was observed in the left posterior region, still with the temporal region obscured by muscle. The background was then further obscured by muscle, but a 7 Hz rhythm could be observed in both posterior head regions. After another 30 to 40 seconds, the background was better observed and there was diffuse, but left hemispheric predominant, 6 to 7 Hz polyspike activity noted in the left temporal and central regions primarily, with some rhythmic, slower frequencies noted more anteriorly. This slowed to rhythmic 3 to 4 Hz activity with intermixed polyspikes and the patient event button was activated by nursing after just over a minute after the initial clinical manifestations of the seizure. The ictal activity slowed further to 2-3 Hz and was prominently expressed in the left>right frontocentral regions. After another 50 seconds, muscle activity again obscured the background as the seizure secondarily generalized. Bilateral spread was characterized by buildup of lower voltage, polyspike activity centrally, followed by bursts of polyspike activity and aftergoing slow waves as the seizure terminated. At the termination of the seizure, the left hemisphere was noted to be suppressed 1 second before the activity terminated in the right hemisphere. The seizure lasted 4 minutes. Clinically, she was laying in bed with eyes closed at the beginning of the seizure. She exhaled deeply a few times when the EEG was noted to show diffuse voltage attenuation. She then developed prominent oral automatisms with her mouth open wide, appeared restless and her left hand crossed over her body and grabbed/massaged her right shoulder. The left leg repeatedly flexed and extended at the hip and knee, rubbing against the bed. There were intermittent moaning vocalizations and her head turned toward the left, then returned to the midline as the semiology changed to more agitated behaviors with her sitting up , both legs up off the bed with kicking movements, grabbing at her knees with both hands. After this, both legs repeatedly flexed and extended at the hip and knee with large amplitude movements. She then sat up and tried to get out of bed and nursing was able to keep her in bed. She exhibited some clonic twitching of the head to the right and began gazing toward the right. She was unresponsive to the nurse. As the seizure generalized, her head turned more toward the right and there was a right facial grimace with forced eye closure and left facial clonic activity. She then leaned back and exhibited rapid clonus with the left leg flexed at the hip and knee, right leg extended and her left hand was gripping the nurse's arm. The left arm raised up near her face and the right arm was extended at her side. The left arm came through a figure-4 -like posture and extended as well. At this point, clonus was more prominent in the right arm while the left was more tonic, and activity was asynchronous. She was rolled on to her side and had sonorous respirations after the seizure. EMU Exam - Exam Physical/Neurological Exam: Physical Exam: General: Well appearing in no acute distress. Eyes: normal conjunctiva, pupils were equal and reactive. Neck: supple ENT: some trauma to mucous membranes from sz last night MSK: no extremity deformities Derm: There is a scratch with scab on the right dorsal forearm as well as a small, slightly raised and erythematous area on the dorsal right forearm, overlying a prominent vein. This is slightly tender to touch. No drainage, no change from previous day. Neurological Exam: Mental Status: Awake and alert. Oriented to person, place, and time. Fluent. Comprehension intact. Affect appropriate. Cranial Nerves: Visual song full to confrontation. Pupils 3/3 to 2/2mm bilaterally. Versions were full and without nystagmus. Facial musculature and sensation were symmetric. Hearing grossly intact to voice. Palate was upgoing bilaterally. Tongue was midline. Shoulder shrug was symmetric. Motor: Bulk, tone, and strength were normal throughout. Pronator drift was absent. There were no abnormal movements. Sensory: Sensation to light touch intact. Romberg was deferred. Coordination: Finger to nose intact but there is some intention tremor today Reflexes: 2+ throughout the upper and lower extremities. 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 The current monitoring session is undertaken in order to evaluate for surgical candidacy. EEG has been notable for intermittent slowing and intermittent rhythmic delta in the left temporal region and slowing and breach effect in the right parietal region. She's had one typical seizure thus far characterized by left hand manual automatism, oral automatism, humming, repeated left leg flexion/extension at the knee and head turning toward the left. This was associated with electrographic seizure activity in the left tempora/parietal regions. She had a second seizure on 10/08 that began as a typical seizure as described above, but then developed more frontal semiology followed by bilateral spread with convulsive activity. She received lorazepam 1mg IV. EEG has shown an initial voltage attenuation 20 seconds before ictal activity emerges in the left hemisphere. At this point, we will restart her carbamazepine as we have captured 2 typical events. I discussed potential additional options to add to carbamazepine including zonisamide, Depakote and Briviact. In discussing potential side effects, she is worried about possible weight loss with zonisamide as well as appetite suppression and mood changes. She has heard that her liver "has been affected" in the past so she worries a bit about that with Depakote. She would like to remain on generic drugs for cost reasons, so Briviact would be difficult in that sense. 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 Also offered use of exercise bike. * Will monitor red area on right forearm and consider topical abx if appearing infected. * Will plan on d/c home tomorrow morning * Will discuss patient in Patient Review Conference in [place] for surgical candidacy - expressed to patient that the recommendation may be for intracranial monitoring based on this LTM and MRI. We discussed what a potential surgical work up could involve, and that this testing would need to be done in [place]. * Will plan to follow up with her in my clinic on 10/31 or 11/01 if PRC can be scheduled for next Monday. 45 minutes was spent in discussion of LTM results thus far, pre-surgical work up and additional medication options/side effects.
[2017-10-09] MEDS ORDERED: carBAMazepine TAB(*) 200 MG PO SCH ×2 (13:00→18:00)
[2017-10-09] MEDS: Magnesium Oxide TAB* 400 MG PO SCH (18:21)
[2017-10-09] MEDS ORDERED: Divalproex ER TAB(*) 250 MG PO SCH (21:00)
[2017-10-09 23:03] VITALS: BP 112/72
[2017-10-10] MEDS: Cholecalciferol TAB* 1000 UNITS PO SCH (09:32)
[2017-10-10] MEDS: carBAMazepine TAB(*) 200 MG PO SCH (09:32)
[2017-10-10] MEDS: Vitamin THERAPEUTIC TAB PO SCH (09:32)
[2017-10-10] MEDS: Calcium Carbonate TAB* 1250 MG (CALCIUM 500 MG) PO SCH (09:32)
[2017-10-10] MEDS: Ascorbic Acid TAB* 500 MG PO SCH (09:32)
--- NOTE | 2017-10-10 09:32 | PN ---
Epilepsy Service Progress Note Date of Service: 10/10/17 - Subjective No further seizures past 24 hours. Pt has restarted home dose carbamazepine and received 250mg divalproex ER last night without issue. Reports she slept better. No further questions today with regard to our conversation yesterday. - Medications Active Medications: Acetaminophen (Tylenol Tab*) 650 mg PO Q6H PRN PRN Reason: PAIN Ascorbic Acid (Vitamin C Tab*) 500 mg PO DAILY [facility] Last Admin: 10/09/17 09:21 Dose: 500 mg Calcium Carbonate (Calcium Carbonate Tab*) 1,250 mg PO DAILY [facility] Last Admin: 10/09/17 09:24 Dose: 1,250 mg Carbamazepine (Tegretol Tab(*)) 400 mg PO BID [facility] Last Admin: 10/09/17 21:19 Dose: 400 mg Carbamazepine (Tegretol Tab(*)) 300 mg PO 1300 [facility] Last Admin: 10/09/17 13:27 Dose: 300 mg Carbamazepine (Tegretol Tab(*)) 200 mg PO QPM [facility] Last Admin: 10/09/17 18:21 Dose: 200 mg Cholecalciferol (Vitamin D Tab*) 4,000 units PO BID [facility] Last Admin: 10/09/17 21:19 Dose: 4,000 units Diphenhydramine HCl (Benadryl Po*) 25 mg PO Q6H PRN PRN Reason: ITCHING Divalproex Sodium (Depakote Er Tab(*)) 250 mg PO BEDTIME [facility] Last Admin: 10/09/17 21:20 Dose: 250 mg Lorazepam (Ativan Inj*) 1 mg IV Q8H PRN PRN Reason: Generalized Tonic Clonic Seizu Last Admin: 10/09/17 00:20 Dose: 1 mg Magnesium Oxide (Magox 400 Tab*) 800 mg PO 1800 [facility] Last Admin: 10/09/17 18:21 Dose: 800 mg Multivitamins (Theragran Tab*) 1 tab PO DAILY [facility] Last Admin: 10/09/17 09:24 Dose: 1 tab Vitamin E (Vitamin E Cap*) 400 unit PO DAILY [facility] Last Admin: 10/09/17 09:23 Dose: 400 unit EMU Diagnostics - Diagnostic Most Recent Vital Signs: Vital Signs: Temp Pulse Resp BP Pulse Ox 100.0 F 82 18 112/72 100 10/09/17 19:45 10/09/17 19:45 10/09/17 20:20 10/09/17 19:45 10/09/17 07:55 Interim video-EEG long-term monitoring report: #01 10/06: Medications: carbamazepine 100mg dinner time on 10/06, 200mg at bedtime 10/06, 200mg AM 10/07 The background demonstrated an area of slowing, higher amplitudes and some faster frequency activity in the right parietal region, maximal at P4, which is consistent with breach effect related to her previous craniotomy. There is also intermittent sharply contoured delta slowing in the left temporal region, maximal at T1 and F7 with a field to T3. At times, these appear to be poorly formed sharp wave discharges. The background was otherwise notable for a PDR of 9 on the left, approximately 8.5 on the right. The sleep background was notable for rapid transition to REM sleep after the patient initially fell asleep. Approximately 20 minutes after stage 2 sleep was first noted she went into REM, but she had frequent arousals initially during those first 20 minutes of sleep. No seizures, no ictal patterns #02 10/07: Medications: carbamazepine 150mg noon 10/07, 100mg at bedtime, 100mg AM on 10/08 [place] is similar to that described above, with area of breach with intermixed slowing in the right parietal region and independent area of sharply contoured delta slowing versus poorly formed sharp wave discharges in the left temporal region. This delta slowing is noted most during waking and drowsiness, less during sleep. The sleep background appeared normal, with normal REM latency. She had one seizure at 13:55 on 10/07 which was unrecognized. Electrographically , this began with an attenuation over the left hemisphere primarily, followed by a rhythmic 4 Hz pattern which did not emerge until about 40 seconds after the attenuation and was maximal over the temporal region and parieto-occipital region. This then increased in frequency to a 6 Hz spiking pattern, maximal at T1, F7, T3 and T5, and after 25 seconds, was replaced by rhythmic 3 Hz activity with spread into the right hemisphere. The seizure ended after 1 minute and 20 seconds, and the left temporal region was relatively suppressed, with gradual return of the usual background over a few minutes. Clinically, she was laying in bed with her eyes closed when the seizure began. Thirty seconds after the initial voltage attenuation was noted, her eyes opened and she had prominent oral automatisms, followed by repeatedly moving her left leg against the bed by flexing and extending at the knee. Her head then turned toward the left and she reached over with her left hand, touched her right shoulder and exhibited manual automatism with the left hand. The right arm remained under a blanket until after the seizure was over. There were also humming vocalizations. After the seizure was over, she reached her right arm up and grabbed her pillow, then was seen to massage the pillow in the post-ictal state. She looked around confused, but did not recognize she'd had a seizure. #03 10/08: Medications: none after AM dose carbamazepine above Background remained similar to that described above with breach effect over right parietal region with intermittent slowing as well as TIRDA in the left temporal region. A seizure occurred at 23:25 on 10/08. Electographically, there was voltage attenuation diffusely, but primarily oer the left hemisphere/temporal region followed 20 seconds later by prominent muscle artifact partially obscuring the background as she began having oral automatisms. 5 to 10 seconds later, a 6 Hz rhythm was observed in the left posterior region, still with the temporal region obscured by muscle. The background was then further obscured by muscle, but a 7 Hz rhythm could be observed in both posterior head regions. After another 30 to 40 seconds, the background was better observed and there was diffuse, but left hemispheric predominant, 6 to 7 Hz polyspike activity noted in the left temporal and central regions primarily, with some rhythmic, slower frequencies noted more anteriorly. This slowed to rhythmic 3 to 4 Hz activity with intermixed polyspikes and the patient event button was activated by nursing after just over a minute after the initial clinical manifestations of the seizure. The ictal activity slowed further to 2-3 Hz and was prominently expressed in the left>right frontocentral regions. After another 50 seconds, muscle activity again obscured the background as the seizure secondarily generalized. Bilateral spread was characterized by buildup of lower voltage, polyspike activity centrally, followed by bursts of polyspike activity and aftergoing slow waves as the seizure terminated. At the termination of the seizure, the left hemisphere was noted to be suppressed 1 second before the activity terminated in the right hemisphere. The seizure lasted 4 minutes. Clinically, she was laying in bed with eyes closed at the beginning of the seizure. She exhaled deeply a few times when the EEG was noted to show diffuse voltage attenuation. She then developed prominent oral automatisms with her mouth open wide, appeared restless and her left hand crossed over her body and grabbed/massaged her right shoulder. The left leg repeatedly flexed and extended at the hip and knee, rubbing against the bed. There were intermittent moaning vocalizations and her head turned toward the left, then returned to the midline as the semiology changed to more agitated behaviors with her sitting up , both legs up off the bed with kicking movements, grabbing at her knees with both hands. After this, both legs repeatedly flexed and extended at the hip and knee with large amplitude movements. She then sat up and tried to get out of bed and nursing was able to keep her in bed. She exhibited some clonic twitching of the head to the right and began gazing toward the right. She was unresponsive to the nurse. As the seizure generalized, her head turned more toward the right and there was a right facial grimace with forced eye closure and left facial clonic activity. She then leaned back and exhibited rapid clonus with the left leg flexed at the hip and knee, right leg extended and her left hand was gripping the nurse's arm. The left arm raised up near her face and the right arm was extended at her side. The left arm came through a figure-4 -like posture and extended as well. At this point, clonus was more prominent in the right arm while the left was more tonic, and activity was asynchronous. She was rolled on to her side and had sonorous respirations after the seizure. #04 10/09: Medications: carbamazepine 400mg QAM and bedtime, 300mg at 1300 and 200mg at dinnertime Background remained similar to that previously described with breach effect over right parietal region with associated intermittent slowing as well as TIRDA in the left temporal region. TIRDA typically occurred at ~1Hz and was maximal at T1 and F7. Normal sleep background. REM was first noted about 40 minutes after she feel asleep, but sleep had been very fragmented prior to that. No patient events, no seizures EMU Exam - Exam Physical/Neurological Exam: Physical Exam: General: Well appearing in no acute distress. Eyes: normal conjunctiva, pupils were equal and reactive. MSK: no extremity deformities Derm: There is a scratch with scab on the right dorsal forearm as well as a small, slightly raised and erythematous area on the dorsal right forearm, overlying a prominent vein. This is slightly tender to touch. No drainage, no change from previous day. Neurological Exam: Mental Status: Awake and alert. Oriented to person, place, and time. Fluent. Comprehension intact. Affect appropriate. Cranial Nerves: Visual song full to confrontation. Pupils 3/3 to 2/2mm bilaterally. Versions were full and without nystagmus. Facial musculature and sensation were symmetric. Hearing grossly intact to voice. Palate was upgoing bilaterally. Tongue was midline. Shoulder shrug was symmetric. Motor: Bulk, tone, and strength were normal throughout. Pronator drift was absent. There were no abnormal movements. Sensory: Sensation to light touch intact. Romberg was deferred. Coordination: Finger to nose intact but there is some intention tremor today Reflexes: 2+ throughout the upper and lower extremities. 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 The current monitoring session is undertaken in order to evaluate for surgical candidacy. EEG has been notable for intermittent slowing and intermittent rhythmic delta in the left temporal region and slowing and breach effect in the right parietal region. She's had one typical seizure characterized by left hand manual automatism, oral automatism, humming, repeated left leg flexion/extension at the knee and head turning toward the left. This was associated with electrographic seizure activity in the left tempora/parietal regions. She had a second seizure on 10/08 that began as a typical seizure as described above, but then developed more frontal semiology followed by bilateral spread with convulsive activity. She received lorazepam 1mg IV. EEG has shown an initial voltage attenuation 20 seconds before ictal activity emerges in the left hemisphere. Carbamazepine was restarted yesterday and divalproex 250mg was added last night after discussion of multiple additional AEDs as potential adjunctive therapy. Plan: * d/c halfway video EEG monitoring * home AED regimen: carbamazepine 400mg/300mg/200mg/400mg, restarted around 1000 on 10/09 * prescribed divalproex DR 250mg nightly as ER was not preferred on insurance per [employer] * Scheduled for 10/18 Patient Review Conference in [place] for surgical candidacy * follow up with her in my clinic on 10/31 at 11:00.
[2017-10-10] MEDS: Vitamin E CAP* 400 UNIT PO SCH (09:33)
--- NOTE | 2017-10-10 10:01 | DS ---
EMU Discharge - Discharge Summary Discharge Summary: Admitted: 10/06/17 - 10/10/17 Attending: Emily Cagle MD Admitting Diagnosis: localization-related epilepsy, intractable Discharge Diagnosis: same as above Admission History (From Admission H&P): Deanne Pacheco is a 62 year old woman with a history of breast cancer and epilepsy since the age of 11. She reports that at the onset of her epilepsy, she had a seizure witnessed by her mother where she was staggering, walking around in a nulato and not responding. She was seizure-free during her teenage years on medication, but her seizures returned after a boyfriend committed suicide. She noticed increase seizure frequency during pregnancies, of which she 's had 6 with 2 healthy children. She gets an aura before a seizure that is a very "foreign" feeling descending over her and she has previously described this to me as a "big, bad meanie taking over my head". She can sometimes have repeated auras in a single day. Her has reported that when Deanne has a seizure, she is unresponsive, has bimanual automatisms, oral automatisms and humming. It takes her 2 to 4 minutes to get back to normal but she may still have a "fog" that takes longer to lift. Afterward, she feels confused. Thirteen years ago, she fell down the stairs for unclear reasons and had an intracranial hematoma which was evacuated on the right. Seizures went away for 1.5 years. When they returned, the semiology was the same. She had breast cancer in 2014 and seizures got worse during chemotherapy, up to twice per month. At that time, carbamazepine 200mg was increased to 6.5 tabs daily, which she divides over 4 administrations daily. She believes she had EEG monitoring at [facility] in the past, but could not specifically recall the results, though believes it was her choice not to go through with surgery. She continues to have multiple events per month. She had a seizure this morning , and on 10/03, she had two. I saw her on August 22 and at that time she reported having 5 seizures in addition to 5 auras in Apr, 1 sz in May, 4 sz in June plus 6 auras, 3 sz in July plus 1 aura. She had agreed previously that she would like to re-explore a surgical option, given her medically refractory seizures. PRIOR AEDs: Lamictal: not effective levetiracetam: sleepiness phenobarbital: on through teenage years phenytoin: on through teen years Admission Examination: General: Well appearing in no acute distress. Eyes: normal conjunctiva, pupils were equal and reactive. Neck: supple ENT: atraumatic, normal oropharynx MSK: no extremity deformities Derm: no rashes or lesions Neurological Exam: Mental Status: Awake and alert. Oriented to person, place, and time. Fluent. Comprehension intact. Affect appropriate. Cranial Nerves: Visual song full to confrontation. Versions were full and without nystagmus. Facial musculature and sensation were symmetric. Hearing grossly intact to finger rub. Palate was upgoing bilaterally. Tongue was midline. Shoulder shrug was symmetric. Motor: Bulk, tone, and strength were normal throughout. Pronator drift was absent. There were no abnormal movements. Sensory: Sensation to light touch intact. Romberg was deferred. Coordination: Finger to nose intact. Reflexes: 2+ throughout the upper and lower extremities. Gait: Narrow based and normal. Admission AED Medications: carbamazepine 400mg/300mg/200mg/400mg (TDD 1300mg). Hospital Course: The patient was admitted to the epilepsy service for long-term video EEG monitoring. The patient had 2 events consisting of left hand manual automatism, oral automatism, humming, repeated left leg flexion/extension at the knee and head turning toward the left.. The second seizure began similarly, but she then developed more frontal semiology followed by bilateral convulsive activity. These were considered typical of events that the was having at home. During these events, the EEG showed a theta pattern in the left hemisphere, maximal in the temporal and parietal regions, which emerged after 30 to 40 seconds of diffuse voltage attenuation which was maximal over the left hemisphere. The following medication medication changes were made during the testing: Divalproex 250mg was added. She received ER in the hospital and DR astorga was prescribed for insurance purposes. The patient's LTM will be discussed in [facility], along with review of MRI, for possible surgical candidacy Discharge Examination: same as admission Destination: Home. Diet: Regular. Follow-up: 10/31 at 11:[address] Cagle Home Medications Medication Instructions Recorded Confirmed Type carBAMazepine TAB(*) [Tegretol 300 mg PO DAILY 12/17/13 10/06/17 History TAB(*)] carBAMazepine TAB(*) [Tegretol 400 mg PO QAM 12/17/13 10/06/17 History TAB(*)] Ascorbic Acid [Vitamin C] 1 tab PO DAILY 10/06/17 10/06/17 History Bone Strength Homeopathic 2 gm PO QPM 10/06/17 10/06/17 History Calcium 2,000 mg PO DAILY 10/06/17 10/06/17 History Carbamazepine [Tegretol] 200 mg PO QPM 10/06/17 10/06/17 History Carbamazepine [Tegretol] 400 mg PO BEDTIME 10/06/17 10/06/17 History Dha 500 mg PO DAILY 10/06/17 10/06/17 History Charmaine Tincture 15 drop PO QAM 10/06/17 10/06/17 History Magnesium Aspartate HCl 1,000 mg PO BID 10/06/17 10/06/17 History Magnesium Oxide [Magnesium] 500 mg PO QPM 10/06/17 10/06/17 History Multivitamin [Multivitamins] 1 tab PO DAILY 10/06/17 10/06/17 History Prolia(NF) 1 inj IM SEE INSTRUCTIONS 10/06/17 10/06/17 History Red Yeast Rice 1,200 mg PO QPM 10/06/17 10/06/17 History Rm-10 Fermented Mushroom Complex 582.5 mg PO QPM 10/06/17 10/06/17 History Ubidecarenone [Co Q-10] 200 mbq PO QAM 10/06/17 10/06/17 History Vitamin D3 4,000 i.u. PO BID 10/06/17 10/06/17 History Vitamin E Mixed [Vitamin E] 1 cap PO DAILY 10/06/17 10/06/17 History Divalproex Sodium 250 mg PO BEDTIME #30 tablet. 10/09/17 Rx
== END 2017-10-10 10:00 | disposition home or self-care (01) | DRG 53 ==
LOC: EMU 10-06 13:15
PROVIDERS: ADMIT Psychiatry & Neurology Neurology; ATTEND Psychiatry & Neurology Neurology
DX: G40.919 Epilepsy, unspecified, intractable, without status epilepticus (principal); S50.861A Insect bite (nonvenomous) of right forearm, initial encounter; W57.XXXA Bitten or stung by nonvenomous insect and other nonvenomous arthropods, initial encounter; Y92.9 Unspecified place or not applicable; Z85.3 Personal history of malignant neoplasm of breast; Z87.820 Personal history of traumatic brain injury; Z79.899 Other long term (current) drug therapy
CPT/HCPCS: 95951; A9270-GY; J2060

== ENCOUNTER 2017-06-28 17:04 | Emergency (ER) | payer OTHER ==
[2017-06-28 18:47] LABS: ABS Basophils 0 10^3/ul (0-0.2); ABS Eosinophils 0.1 10^3/ul (0-0.6); ABS Lymphocytes 1.2 10^3/ul (1.0-4.8); ABS Monocytes 0.4 10^3/ul (0-0.8); ABS Neutrophils 2.2 10^3/ul (1.5-7.7); ABS Nucleated RBC 0 10^3/ul; Eosinophil % 2.8 % (0-6); Hematocrit 31 % (35-47); Lymphocyte % 30.3 % (25-47); Mean Corpuscular HGB Conc 35 g/dl (31-36); Mean Corpuscular Hemoglobin 34 pg (27-31); Mean Corpuscular Volume 96 fL (80-97); Mean Platelet Volume 7 um3 (7.4-10.4); Nucleated Red Blood Cells % 0; Platelet Count 247 10^3/ul (150-450); Red Blood Count 3.27 10^6/ul (4.0-5.4); Red Cell Distribution Width 13 % (10.5-15); White Blood Count 3.9 10^3/ul (3.5-10.8)
[2017-06-28 19:01] LABS: EGFR Non-African American 102.9 (>60)
[2017-06-28 20:05] LABS: Urine Appearance Cloudy; Urine Blood Negative (Negative); Urine Color Straw; Urine Ketones Negative (Negative); Urine Protein Negative (Negative); Urine Specific Gravity 1.009 (1.010-1.030); Urine Urobilinogen Negative (Negative)
[2017-06-28 20:35] VITALS: BP 139/79
--- NOTE | 2017-07-05 23:43 | ED ---
Nahed Trejo Julia, scribed for Fabrizio Turner MD on 06/28/17 at 1814 . Complex/Multi-Sys Presentation - HPI Summary HPI Summary: This patient is a 62 year old F presenting to [facility] with a chief complaint of bilateral lower extremity edema from the knees down and left hand edema for the past couple days. Patient reports and elevated systolic blood pressure of 149. She reports recent L shoulder injury and has been taking 600mg of Ibuprofen three times a day for her pain. - History Of Current Complaint Chief Complaint: EDExtremityLower Hx Obtained From: Patient Onset/Duration: Lasting Days, Still Present Timing: Constant Location: Pain At: - R shoulder Associated Signs And Symptoms: Positive: Edema - BLE and L hand Related History: Other - Recent R shoulder injury and subsequent Ibuprofen use - Allergies/Home Medications Allergies/Adverse Reactions: Allergies Allergy/AdvReac Type Severity Reaction Status Date / Time MS Epinephrine [Epinephrine] Allergy HYPERVENTIL Verified 07/09/15 10:17 ATION MS Tetanus Antitoxin Allergy BRAIN Verified 07/09/15 10:17 [Tetanus Antitoxin] SEIZURES PMH/Surg Hx/FS Hx/Imm Hx Endocrine/Hematology History: Denies: Hx Diabetes Cardiovascular History: Denies: Hx Hypertension, Hx Pacemaker/ICD Respiratory History: Reports: Other Respiratory Problems/Disorders - BRONCHIAL PNEUMONIA X 2 History: Denies: Hx Renal Disease Musculoskeletal History: Reports: Hx Osteoporosis Sensory History: Reports: Hx Contacts or Glasses, Hx Vision Problem - r/t traumatic brain injury Denies: Hx Hearing Aid Opthamlomology History: Reports: Hx Contacts or Glasses, Hx Vision Problem - r/ t traumatic brain injury Neurological History: Reports: Hx Migraine, Hx Seizures, Other Neuro Impairments /Disorders - traumatic brain injury Psychiatric History: Denies: Hx Panic Disorder - Cancer History Cancer Type, Location and Year: Rt BREAST CANCER W/ MASTECTOMY - NO LYMPH NODES INVOLVED Hx Chemotherapy: Yes - APR-AUGUST 2014 CHEMO FOR RIGHT LYMPH CANCER Hx Radiation Therapy: No - Surgical History Surgery Procedure, Year, and Place: possibly 2009 or 2008 - right mastectomy. traumatic brain injury with surgery - HEMATOMA -BLEEDING - BUR HOLE DRAINAGE W/ TITANIUM CLOSURE - [facility] -11 years ago( INFORMAITON SCANNED INTO PACS). Rt HIP - FX REPAIR - 12/18/13. ECTOPIC - MANY YRS AGO Hx Anesthesia Reactions: Yes - with dental anesthesia Infectious Disease History: No Infectious Disease History: Denies: Traveled Outside the [place] in Last 30 Days - Family History Known Family History: Positive: Other - cancer, aneurism Negative: Diabetes - Social History Alcohol Use: Weekly Alcohol Amount: half a bottle a week Substance Use Type: Reports: None Smoking Status (MU): Never Smoked Tobacco Review of Systems Negative: Fever Positive: Myalgia - R shoulder pain, Edema - BLE and L hand All Other Systems Reviewed And Are Negative: Yes Physical Exam - Summary Physical Exam Summary: Appearance: Well appearing, no pain distress Skin: warm, dry, reflects adequate perfusion Head/face: normal Eyes: EOMI, BENJA ENT: normal Neck: supple, non-tender Respiratory: CTA, breath sounds present Cardiovascular: RRR, pulses symmetrical Abdomen: non-tender, soft Bowel: present Musculoskeletal: , strength/ROM intact, swelling in the left hand and bilateral ankles Neuro: normal, sensory motor intact, A&Ox3 Triage Information Reviewed: Yes Vital Signs On Initial Exam: Initial Vitals Temp Pulse Resp BP Pulse Ox 99.0 F 70 16 149/90 100 06/28/17 17:35 06/28/17 17:35 06/28/17 17:35 06/28/17 17:35 06/28/17 17:35 Vital Signs Reviewed: Yes Diagnostics - Vital Signs Vital Signs Temp Pulse Resp BP Pulse Ox 06/28/17 17:35 99.0 F 70 16 149/90 100 - Laboratory Lab Results: Lab Results 06/28/17 06/28/17 06/28/17 Range/Units 18:35 18:35 19:50 WBC 3.9 (3.5-10.8) 10^3/ul RBC 3.27 L (4.0-5.4) 10^6/ul Hgb 11.0 L (12.0-16.0) g/dl Hct 31 L (35-47) % MCV 96 (80-97) fL MCH 34 H (27-31) pg MCHC 35 (31-36) g/dl RDW 13 (10.5-15) % Plt Count 247 (150-450) 10^3/ul MPV 7 L (7.4-10.4) um3 Neut % (Auto) 55.6 (38-83) % Lymph % (Auto) 30.3 (25-47) % Arroyo % (Auto) 10.5 H (0-7) % Eos % (Auto) 2.8 (0-6) % Baso % (Auto) 0.8 (0-2) % Absolute Neuts (auto) 2.2 (1.5-7.7) 10^3/ul Absolute Lymphs (auto) 1.2 (1.0-4.8) 10^3/ul Absolute Monos (auto) 0.4 (0-0.8) 10^3/ul Absolute Eos (auto) 0.1 (0-0.6) 10^3/ul Absolute Basos (auto) 0 (0-0.2) 10^3/ul Absolute Nucleated RBC 0 10^3/ul Nucleated RBC % 0 Sodium 133 (133-145) mmol/L Potassium 4.1 (3.5-5.0) mmol/L Chloride 97 L (101-111) mmol/L Carbon Dioxide 32 (22-32) mmol/L Anion Gap 4 (2-11) mmol/L BUN 17 (6-24) mg/dL Creatinine 0.59 (0.51-0.95) mg/dL Est GFR ( Amer) 132.4 (>60) Est GFR (Non-Af Amer) 102.9 (>60) BUN/Creatinine Ratio 28.8 H (8-20) Glucose 89 (70-100) mg/dL Calcium 9.3 (8.6-10.3) mg/dL Total Bilirubin 0.40 (0.2-1.0) mg/dL AST 20 (13-39) U/L ALT 14 (7-52) U/L Alkaline Phosphatase 81 (34-104) U/L Total Protein 6.6 (6.4-8.9) g/dL Albumin 4.0 (3.2-5.2) g/dL Globulin 2.6 (2-4) g/dL Albumin/Globulin Ratio 1.5 (1-3) Urine Color Straw Urine Appearance Cloudy Urine pH 8.0 (5-9) Ur Specific [place] 1.009 L (1.010-1.030) Urine Protein Negative (Negative) Urine Ketones Negative (Negative) Urine Blood Negative (Negative) Urine Nitrate Negative (Negative) Urine Bilirubin Negative (Negative) Urine Urobilinogen Negative (Negative) Ur Leukocyte Esterase Trace A (Negative) Urine WBC (Auto) Trace(0-5/hpf) (Absent) Urine RBC (Auto) Trace(0-2/hpf) (Absent) Ur Squamous Epith Cells Present A (Absent) Urine Bacteria Absent (Absent) Urine Yeast Present A (Absent) Urine Glucose Negative (Negative) Urine Ascorbic Acid * A (Negative) Result Diagrams: 06/28/17 18:35 06/28/17 18:35 Lab Statement: Any lab studies that have been ordered have been reviewed, and results considered in the medical decision making process. Complex Multi-Symp Course/Dx Course Of Treatment: Patient presents with bilateral lower extremity edema from the knees down and left hand edema for the past couple days. Patient reports and elevated systolic blood pressure of 149. She reports recent L shoulder injury and has been taking 600mg of Ibuprofen three times a day for her pain. Bloodwork and Urinalysis was unremarkable. - Diagnoses Provider Diagnoses: NSAID effect with swelling, NSAID effect elevated blood pressure Discharge - Discharge Plan Condition: Fair Disposition: HOME Discharge Disposition Comment: discharge to home Patient Education Materials: Safe Use of NSAIDs (ED) Referrals: Fly Phillips MD [Primary Care Provider] - The documentation as recorded by the Nahed vázquez Julia accurately reflects the service I personally performed and the decisions made by , Fabrizio Turner MD.
== END 2017-06-28 20:30 | disposition home or self-care (01) ==
LOC: ED 17:04
DX: R60.0 Localized edema (principal); R03.0 Elevated blood-pressure reading, without diagnosis of hypertension; T39.395A Adverse effect of other nonsteroidal anti-inflammatory drugs [NSAID], initial encounter; Z88.7 Allergy status to serum and vaccine; Z88.8 Allergy status to other drugs, medicaments and biological substances
CPT/HCPCS: 36415; 80053; 81003; 81015; 85025; 87086; 99282

== ENCOUNTER 2019-02-08 06:49 | Observation (INO) | payer OTHER ==
[~2019-02-08 06:49] MED LIST: Buffered Lidocaine 1% SYRIN* 1 ML/SYRINGE INTRADERM ONE; Lactated Ringers 1000 ML Bag* 1,000 ML IV SCH
[2019-02-08] MEDS ORDERED: Lidocaine 2.5%/Prilocain 2.5%* 5 GM TUBE ONE (07:25)
[2019-02-08] MEDS ORDERED: ceFAZolin 2 GM PREMIX in ORs 2 GM/50 ML BAG ONE (10:18)
[2019-02-08] MEDS ORDERED: Heparin VIAL(*) 5000 UNITS/ML VIAL (FIVE THOUSAND) ONE (10:18)
[2019-02-08] MEDS ORDERED: Bupivacaine 0.25% SDV PF* 10 ML VIAL INJ ONE (10:35)
[2019-02-08] MEDS ORDERED: Propofol* 10 MG/ML 20 ML BTL ONE (10:57)
[2019-02-08] MEDS ORDERED: Lidocaine 2% PF * 5 ML VIAL ONE (10:57)
[2019-02-08] MEDS ORDERED: fentaNYL* 50 MCG/ML 2 ML VIAL (100 MCG VIAL) ONE (10:58)
[2019-02-08] MEDS ORDERED: Midazolam* 1 MG/ML 2 ML VIAL (2 MG) ONE (10:58)
[2019-02-08] MEDS ORDERED: Rocuronium* 10 MG/ML VIAL ONE (10:59)
[2019-02-08] MEDS ORDERED: carBAMazepine LIQ(*) 100 MG/5 ML UDC (10 ML = 200 MG) PO ONE (11:00)
[2019-02-08] MEDS ORDERED: Succinylcholine* 20 MG/ML 10 ML VIAL ONE (11:17)
[2019-02-08] MEDS ORDERED: DiMENhydriNATE IV* 50 MG/ML VIAL IV PUSH PRN (11:54)
[2019-02-08] MEDS ORDERED: Acetaminophen TAB* 325 MG PO PRN ×2 (11:54→14:12)
[2019-02-08] MEDS ORDERED: HYDROmorphone INJ1* 1 MG/ML SYRINGE IV PRN (11:54)
[2019-02-08] MEDS ORDERED: oxyCODONE TAB* 5 MG TAB PO PRN (11:54)
[2019-02-08] MEDS ORDERED: Naloxone* 0.4 MG/ML 1 ML VIAL IV PRN (11:54)
[2019-02-08] MEDS ORDERED: Ondansetron INJ* 2 MG/ML VIAL ONE (12:46)
[2019-02-08] MEDS ORDERED: Dexamethasone IV* 4 MG/ML 1 ML (4 MG) ONE (12:46)
[2019-02-08] MEDS ORDERED: EPHEDrine (Pressors)* 50 MG/ML VIAL ONE (12:46)
[2019-02-08] MEDS ORDERED: Ketorolac INJ* 30 MG/ML 1 ML VIAL ONE (12:46)
[2019-02-08] MEDS ORDERED: Metoclopramide IV* 5 MG/ML 2 ML VIAL ONE (12:46)
[2019-02-08] MEDS ORDERED: Sugammadex * 200 MG/2 ML VIAL IV PUSH ONE (13:08)
[2019-02-08] MEDS ORDERED: HYDROmorphone INJ* 0.5 MG/0.5 ML SYRINGE IV SLOW PU PRN (13:47)
--- NOTE | 2019-02-08 13:48 | BRIEFOPN ---
Brief Operative/Procedure Note - Operation Details Pre-Op Diagnosis: left breast cancer Post-Op Diagnosis: same Procedures: Left Mastectomy and sentinel lymph node biopsy Surgeon(s)/Proceduralists: LOAN Augustine Anesthesia: General Estimated Blood Loss: 50 Findings: See dictation Specimen(s)/Culture(s) Description: Left breast and sentinel lymph nodes x 2 Complications: none
[2019-02-08] MEDS ORDERED: Ketorolac INJ* 15 MG/ML 1 ML VIAL IV PUSH PRN (14:12)
[2019-02-08] MEDS ORDERED: HYDROcodone/ACETAMIN 5-325 MG* 1 TAB PO PRN (14:12)
[2019-02-08] MEDS ORDERED: Ondansetron INJ* 2 MG/ML VIAL IV PRN (14:12)
[2019-02-08] MEDS ORDERED: Acetaminophen TAB* 325 MG ONE (14:32)
[2019-02-08] MEDS ORDERED: carBAMazepine TAB(*) 200 MG PO SCH ×2 (15:00→18:30)
[2019-02-08] MEDS: Lactated Ringers 1000 ML Bag* 1,000 ML IV SCH (15:51)
[2019-02-08] MEDS: carBAMazepine TAB(*) 200 MG PO SCH (21:11)
--- NOTE | 2019-02-08 21:55 | OP ---
CC: [facility]; Dr. Randy Phillips * DATE OF OPERATION: 02/08/19 - ROOM #335 DATE OF : 53 SURGEON: Indy Kim MD. ASSISTANTS: SHEILA Daniel and SHEILA Rodarte student. PRE-OP DIAGNOSIS: Left breast cancer. POST-OP DIAGNOSIS: Left breast cancer. OPERATIVE PROCEDURE: Left mastectomy and sentinel lymph node biopsy. INDICATIONS: Ms. Pacheco is a 63-year-old woman recently diagnosed with left breast cancer, who elected to undergo mastectomy and sentinel lymph node biopsy. On the morning of surgery, she underwent sentinel lymph node localization without difficulty. DESCRIPTION OF PROCEDURE: She was then brought to the operating room, placed on the OR table in the supine position and given general anesthesia. The left breast and axilla were prepped and draped in the usual sterile fashion. After marking an ellipse around the breast, a superior incision was made. Subcutaneous tissue was then divided with electrocautery medially to the sternum , superiorly to the clavicle, and laterally to the latissimus dorsi muscle. An inferior incision was then made, and again using electrocautery, flaps were developed medially to the sternum, inferiorly to the rectus muscle, and laterally to the latissimus dorsi muscle. The breast was then elevated off the chest wall using electrocautery. Once the axillary region was reached, a search was made for the sentinel node. It appeared to be in the axillary fat pad and not the breast. The breast was then removed and marked in the usual fashion and handed off as a specimen. Attention was then turned to the axilla. Using the navigator, the approximate location of the sentinel node was identified and it was dissected free from the surrounding tissue using clips to control small blood and lymphatic vessels that approached it. The in situ counts were around 2100. The ex vivo counts were around 1800. A search was then made for a second sentinel node. This was little bit more elusive, but eventually a node was identified that had counts of around 150 in situ and around 80 ex vivo. The axillary bed counts remaining were very low at 3. The wound was irrigated with saline copiously. Hemostasis was assured with a combination of electrocautery and clips, and once this appeared adequate, a SHELL drain was placed under the flaps of the mastectomy site through a stab wound in the anterior axillary line inferiorly and then closure was accomplished. This was done with 2-0 and 3-0 Vicryl in the subcutaneous layer and the skin was closed with 4-0 Vicryl in a subcuticular fashion. The SHELL drain was secured to the chest wall with 3-0 Prolene stitch. Steri-Strips and a dry fluffy dressing were then applied. All sponge and instrument counts were correct. The patient tolerated the procedure well and was transferred to Recovery in a stable condition. [id number]/[facility] #: [id number] TIFFANIE
[2019-02-08] MEDS: Heparin VIAL(*) 5000 UNITS/ML VIAL (FIVE THOUSAND) SUBCUT SCH (22:37)
[2019-02-09] MEDS: Lactated Ringers 1000 ML Bag* 1,000 ML IV SCH (01:31)
[2019-02-09] MEDS: Heparin VIAL(*) 5000 UNITS/ML VIAL (FIVE THOUSAND) SUBCUT SCH (06:10)
[2019-02-09 07:42] VITALS: BP 144/65
[2019-02-09] MEDS: carBAMazepine TAB(*) 200 MG PO SCH (09:58)
--- NOTE | 2019-02-09 12:08 | DS ---
DISCHARGE SUMMARY: DATE OF ADMISSION: 02/08/19 DATE OF DISCHARGE: 02/09/19 SERVICE: General Surgery. ATTENDING SURGEON: Dr. Indy Kim, Dr. Amy Tavares. ADMISSION DIAGNOSIS: Left breast cancer. OPERATION TITLE: Left breast mastectomy and sentinel lymph node biopsy. HOSPITAL COURSE: Ms. Pacheco is a very pleasant 63-year-old female with a recent diagnosis of left breast cancer. She underwent a left breast mastectomy and sentinel lymph node biopsy with Dr. Kim on 02/08/19. The surgery was uneventful. On the day of discharge, on postoperative day 1, the patient was doing very well. She had no complaints of pain. She was tolerating regular diet and she was ambulating. She was also having regular urine output. Given that the discharge criteria was met, she was determined to be an appropriate candidate for discharge. PHYSICAL EXAMINATION: Vital Signs: 98.3, pulse is 71, respiratory rate is 16, O2 sats 95% on room air, blood pressure is 144/65. Left breast SHELL drain with serosanguineous fluid. Skin flaps appear viable. Steri-Strips are in place and they are clean, dry, and intact. No erythema around the Steri-Strips and minimal pain. DISCHARGE INSTRUCTIONS: The patient was given a preprinted handout with discharge instructions as well as precautions. She was given instructions for SHELL drain care by the nursing staff and she was told to follow up with Dr. Kim next week. An appointment was already made. DISCHARGE MEDICATIONS: Lehigh 5/325 mg p.o. q.4 hours p.r.n. for strong pain. CONDITION: Good. DISPOSITION: To home. [id number]/[facility] #: [id number] TIFFANIE
[2019-02-18 16:02] LABS: H2BR Reason for Referral adenocarcinoma; H2BR Result Summary Negative
== END 2019-02-09 11:55 | disposition home or self-care (01) ==
LOC: SDS 06:49 → SSU 14:10
PROVIDERS: ADMIT Surgery; ATTEND Surgery
DX: C50.912 Malignant neoplasm of unspecified site of left female breast (principal); G40.909 Epilepsy, unspecified, not intractable, without status epilepticus; Z87.820 Personal history of traumatic brain injury; M81.0 Age-related osteoporosis without current pathological fracture; I89.0 Lymphedema, not elsewhere classified
CPT/HCPCS: 78195; 88307; 88342; 88360; 88377; 96360; 96361; 96372; A9270-GY; A9541; G0378; J0330; J0690; J1100; J1644; J1885; J2250; J2405; J2704; J2765; J3010; J3490

== ENCOUNTER 2020-01-27 10:06 | Inpatient (IN) ==
[2020-01-27] MEDS ORDERED: Magnesium CITRATE LIQ 300 ML BTL PO ONE (12:58)
[2020-01-27] MEDS ORDERED: Polyethylene Glycol 3350 17 GM PACKET PO PRN (12:58)
[2020-01-27] MEDS ORDERED: HYDROcodone/ACETAMIN 5/325 mg TAB PO ONE ×2 (12:58→15:28)
[2020-01-27 16:31] LABS: Urine Appearance Cloudy; Urine Bilirubin Negative (Negative); Urine Blood Negative (Negative); Urine Color Yellow; Urine Glucose Negative (Negative); Urine Ketones Trace (Negative); Urine Nitrite Negative (Negative); Urine Protein Negative (Negative); Urine Specific Gravity 1.028 (1.010-1.030); Urine Urobilinogen Negative (Negative)
[2020-01-27] MEDS ORDERED: Gadoteridol (CONTRAST) 279.3 MG/ML 10 ML IV ONE (16:41)
[2020-01-27] MEDS ORDERED: Morphine 2 MG/ML SYRINGE IV PRN (16:46)
[2020-01-27 18:46] LABS: ABS Eosinophils 0.1 10^3/ul (0-0.6); ABS Lymphocytes 1.2 10^3/ul (1.0-4.8); ABS Monocytes 0.5 10^3/ul (0-0.8); ABS Neutrophils 2.4 10^3/ul (1.5-7.7); Eosinophil % 3.3 %; Hematocrit 36 % (35-47); Hemoglobin 12.2 g/dL (12.0-16.0); Lymphocyte % 28.3 %; Mean Corpuscular HGB Conc 34 g/dL (31-36); Mean Corpuscular Hemoglobin 32 pg (27-31); Mean Corpuscular Volume 93 fL (80-97); Mean Platelet Volume 6.8 fL (7.4-10.4); Platelet Count 250 10^3/uL (150-450); Red Blood Count 3.84 10^6 /uL (3.70-4.87); Red Cell Distribution Width 13 % (10-15); White Blood Count 4.3 10^3/uL (3.5-10.8)
[2020-01-27 19:02] LABS: Albumin 3.9 g/dL (3.2-5.2); Albumin/Globulin Ratio 1.5 (1-3); BUN/Creatinine Ratio 46.2 (8-20); Calcium 8.6 mg/dL (8.6-10.3); EGFR African American 143.2 (>60); EGFR Non-African American 118.3 (>60); Globulin 2.6 g/dL (2-4); Potassium 3.7 mmol/L (3.5-5.0); Total Bilirubin 0.3 mg/dL (0.2-1.0); Total Protein 6.5 g/dL (6.4-8.9)
[2020-01-27 20:56] LABS: Carbamazepine 9.1 mcg/mL (4.0-12.0)
[2020-01-27] MEDS: Heparin 5000 UNITS/ML 1 mL VIAL SUBCUT SCH (22:00)
[2020-01-27] MEDS: oxyCODONE/Acetamin 5/325 mg TAB PO PRN (22:00)
[2020-01-28] MEDS: Heparin 5000 UNITS/ML 1 mL VIAL SUBCUT SCH ×3 (06:06→21:06)
[2020-01-28] MEDS: oxyCODONE/Acetamin 5/325 mg TAB PO PRN (06:09)
[2020-01-28] MEDS: Iohexol 300 (CONTRAST) 10 ML SDV IV ONE ×2 (08:00→08:54)
[2020-01-28] MEDS: Orphenadrine Citrate INJ 30 mg/ml 2 ml VIAL (60 mg) IV SCH ×2 (08:48→21:06)
[2020-01-28] MEDS ORDERED: Iohexol 350 (CONTRAST) 500 ML MDV IV ONE (08:54)
[2020-01-28] MEDS ORDERED: Buffered Lidocaine 1% SYRIN 1 ml INTRADERM ONE ×2 (09:01→10:00)
[2020-01-28] MEDS: Acetaminophen IV 1 GM/100ML 100 ML IVPB SCH ×3 (09:31→21:06)
[2020-01-28] MEDS: Multivitamins/Minerals TAB PO SCH (10:45)
[2020-01-28] MEDS: Cholecalciferol (VIT D3) 1,000 unit TAB PO SCH (10:45)
[2020-01-28] MEDS ORDERED: Gadoteridol (CONTRAST) 279.3 MG/ML 10 ML IV ONE (12:40)
[2020-01-29] MEDS: Heparin 5000 UNITS/ML 1 mL VIAL SUBCUT SCH ×3 (05:56→21:02)
[2020-01-29] MEDS: Polyethylene Glycol 3350 17 GM PACKET PO SCH (09:55)
[2020-01-29] MEDS: oxyCODONE/Acetamin 5/325 mg TAB PO PRN ×2 (09:56→15:57)
[2020-01-29] MEDS: Orphenadrine Citrate INJ 30 mg/ml 2 ml VIAL (60 mg) IV SCH ×2 (09:56→21:02)
[2020-01-29] MEDS: Multivitamins/Minerals TAB PO SCH (09:59)
[2020-01-29] MEDS: Cholecalciferol (VIT D3) 1,000 unit TAB PO SCH (09:59)
[2020-01-29] MEDS ORDERED: Gadoteridol (CONTRAST) 279.3 MG/ML 10 ML IV ONE (11:18)
[2020-01-29] MEDS ORDERED: Gadoteridol (CONTRAST) 279.3 MG/ML 10 ML IV SCH (12:00)
[2020-01-29 13:09] LABS: Breast Carcinoma Ag(CA27.29) 31.9 U/mL (<=38.0)
[2020-01-29] MEDS ORDERED: Senna TAB 8.6 mg TAB PO PRN (21:00)
[2020-01-30] MEDS: Heparin 5000 UNITS/ML 1 mL VIAL SUBCUT SCH ×2 (05:47→13:29)
[2020-01-30] MEDS: oxyCODONE/Acetamin 5/325 mg TAB PO PRN ×2 (06:18→11:42)
[2020-01-30] MEDS: Polyethylene Glycol 3350 17 GM PACKET PO SCH (09:12)
[2020-01-30] MEDS: Cholecalciferol (VIT D3) 1,000 unit TAB PO SCH (09:13)
[2020-01-30] MEDS: Multivitamins/Minerals TAB PO SCH (09:13)
[2020-01-30 11:30] VITALS: BP 119/67
== END 2020-01-30 16:45 | disposition home health service (06) | DRG 544 ==
LOC: ED 10:06 → SSU 10:06
PROVIDERS: ADMIT Internal Medicine; ATTEND Pediatrics